=== PATIENT | male | born 1995 | race Hispanic/Latino ===

== ENCOUNTER 2018-09-15 15:07 | Inpatient (IN) | payer OTHER ==
[2018-09-15 16:20] LABS: #Eosinphils 0.1 thou/uL (0.0-0.7); #Lymphocytes 1.8 thou/uL (1.20-3.40); #Monocytes 0.7 thou/uL (0.11-0.59); #Neutrophils 10.8 thou/uL (1.40-6.50); %Basophils 0.3 % (0.0-1.0); %Eosinophils 0.7 % (0.0-10.0); %Lymphocytes 13.5 % (21.0-51.0); %Monocytes 5.4 % (0.0-10.0); %Neutrophils 80.1 % (42.0-75.0); Hemoglobin 15.1 g/dL (14.0-18.0); Mean Corpuscular HGB CONC 33.7 g/dL (32.0-36.0); Mean Corpuscular Hemoglobin 30.2 pg (27.0-31.0); Mean Corpuscular Volume 89.4 fL (78.0-98.0); Mean Platelet Volume 8.3 fL (7.4-10.4); Platelet Count 304 thou/uL (130-400); RBC Distribution Width 11.9 % (11.5-14.5); Red Blood Cell (RBC) Count 4.99 mill/uL (4.70-6.10); White Blood Cell (WBC) Count 13.5 thou/uL (4.8-10.8)
[2018-09-15 16:46] LABS: ALT (SGPT) 18 U/L (8-55); AST (SGOT) 15 U/L (5-34); Albumin 4.7 g/dL (3.5-5.0); Alkaline Phosphatase 72 U/L (40-150); Anion Gap 13 mmol/L (10-20); BUN (Urea Nitrogen) 8 mg/dL (8.9-20.6); Bilirubin, Total 0.5 mg/dL (0.2-1.2); Calc. Creatinine Clearance 0 mL/min (70-130); Calcium 10.1 mg/dL (7.8-10.44); Carbon Dioxide 26 mmol/L (22-29); Chloride 102 mmol/L (98-107); Estimated GFR-MDRD Greater than 90; Globulin 3.3 g/dL (2.4-3.5); Glucose 100 mg/dL (70-105); Potassium 4.1 mmol/L (3.5-5.1); Sodium 137 mmol/L (136-145)
[2018-09-15 19:05] LABS: Bilirubin Negative (Negative); Blood, Urine Negative (Negative); Clarity CLEAR (Clear); Glucose, Urine (Dipstick) Negative (Negative); Leukocyte Negative (Negative); Nitrite Negative (Negative); Protein, Urine (Dipstick) Negative (Neg-Trace); Specific Gravity, Urine 1.022 (1.002-1.036)
[2018-09-15] MEDS ORDERED: Ondansetron PF 4 MG/2 ML Vial IVP PRN (19:11)
[2018-09-15] MEDS ORDERED: Ondansetron ODT 4 MG TAB PO PRN (19:11)
[2018-09-15] MEDS ORDERED: Morphine 4 MG/ML VIAL SLOW IVP PRN ×2 (19:11)
[2018-09-15] MEDS ORDERED: Acetaminophen 1,000 MG in Premix Bag 1 BAG IVPB PRN (19:14)
[2018-09-15] MEDS ORDERED: Ketorolac Tromethamine 30 MG/ML VIAL IVP PRN (19:14)
[2018-09-15] MEDS ORDERED: Lactated Ringer's 1,000 ML IV SCH (19:15)
--- NOTE | 2018-09-15 19:49 | HP ---
HISTORY OF PRESENT ILLNESS: Ever Lennon junior is a 23-year-old [place] male, [employer] student from [place]. He lives in a dorm with roommates. He had acute onset of abdominal pain early this morning approximately 16 hours ago, central lower abdomen is localized to the right lower quadrant. He has suffered anorexia, increased pain with movement. He has had some nausea. He was evaluated by Dr. Carrasco, felt to have a classic example for appendicitis and history and CAT scan deferred. White count 13 and hemoglobin 15. Basic metabolic profile normal. ALLERGIES: NONE. TOBACCO: None. ALCOHOL: None. MEDICATIONS: None. PAST SURGICAL AND MEDICAL HISTORY: Noncontributory. REVIEW OF SYSTEMS: Ten-point noncontributory. PHYSICAL EXAMINATION: VITAL SIGNS: Blood pressure 120/74, heart rate 74, and respiratory rate 18. HEAD, EARS, EYES, NOSE, AND THROAT: Unremarkable. LUNGS: Clear to auscultation. CARDIAC: Regular rate and rhythm without murmur or gallop. ABDOMEN: Tenderness in right lower quadrant. No guarding or rebound. Positive Rovsing sign. EXTREMITIES: Unremarkable. NEUROLOGICAL: No deficit. No ankle edema. ASSESSMENT AND PLAN: Acute appendicitis. I do not believe he needs a CAT scan. We would recommend laparoscopic video appendectomy. Risks of infection, bleeding, and reoperation explained. He consents. It is 7:00 p.m. and there are two operating rooms ongoing and if there is a situation that we cannot get into the operating room soon, this may be have to defer till in the morning. Job ID: [id number]
[2018-09-15] MEDS ORDERED: Ketorolac Tromethamine 30 MG/ML VIAL ONE (20:54)
[2018-09-15] MEDS ORDERED: Enoxaparin Sodium 40 MG/0.4 ML SYRINGE SC SCH (21:00)
[2018-09-15] MEDS ORDERED: Piperacillin/Tazobactam 3.375 GM VIAL ONE (21:52)
[2018-09-15] MEDS ORDERED: Piperacillin/Tazobactam 3.375 GM in Sodium Chloride 0.9% 100 ML IVPB SCH (23:59)
[2018-09-16] MEDS ORDERED: Bupivacaine HCl 0.5%/Epinephrine 1:200,000/PF 30 ml Vial ONE (06:48)
[2018-09-16] MEDS ORDERED: Fentanyl 100 MCG/2 ML VIAL ONE (07:04)
[2018-09-16] MEDS ORDERED: Piperacillin/Tazobactam 3.375 GM VIAL ONE (07:31)
[2018-09-16] MEDS ORDERED: Sodium Chloride 0.9% 100 ML ONE (07:32)
[2018-09-16] MEDS ORDERED: Ibuprofen 600 MG TAB PO PRN (08:08)
[2018-09-16] MEDS ORDERED: traMADol HCl 50 MG TAB PO PRN ×2 (08:08)
[2018-09-16] MEDS ORDERED: Acetaminophen 500 MG TAB PO PRN (08:08)
--- NOTE | 2018-09-16 09:24 | OP ---
DATE OF PROCEDURE: 09/16/2018 PREOPERATIVE DIAGNOSIS: Acute appendicitis. POSTOPERATIVE DIAGNOSIS: Acute appendicitis. PROCEDURE PERFORMED: Laparoscopic video appendectomy. ANESTHESIA: General, local 0.5% Marcaine with epinephrine 30 mL. DESCRIPTION OF PROCEDURE: The patient was taken to the operating room, where under general anesthesia, abdomen was clipped of hair, prepared with ChloraPrep, and draped in routine fashion. Wade catheter was placed at the beginning the procedure and removed at the end. 0.5% Marcaine with epinephrine was infiltrated in the skin and subcutaneous tissue about all port sites, total volume used. Infraumbilical incision was made. Pneumoperitoneum to 15 mmHg was obtained with a Veress needle, replaced with a 5 port, laparoscope inserted. Right lateral subcostal incision was made and a 5 port placed. Suprapubic incision was made and a 12 port placed. Appendix was acutely inflamed without purulence. Mesoappendix was taken down with the LigaSure. The stump of the appendix divided with Endo-MEENA blue load stapler. Stapled cecal stump was hemostatic and secured. His appendix was removed and submitted to Pathology. Irrigant and pneumoperitoneum evacuated after ensuring good hemostasis. Suprapubic fascia was approximated with 0 Vicryl. All skin incisions were approximated with interrupted subdermal 4-0 Monocryl and [place] glue applied. Job ID: [id number]
[2018-09-16 09:31] VITALS: TEMP 97.4
[2018-09-16 11:30] VITALS: BP 108/56
[2018-09-16] MEDS ORDERED: Succinylcholine Chloride 20 MG/ML 10 ml SYRINGE FS ONE (14:48)
[2018-09-16] MEDS ORDERED: ePHEDrine 50 MG/ML VIAL ONE (14:48)
[2018-09-16] MEDS ORDERED: Ketorolac Tromethamine 30 MG/ML VIAL ONE (14:48)
[2018-09-16] MEDS ORDERED: Lidocaine 1% PF 5 ML VIAL ONE (14:48)
[2018-09-16] MEDS ORDERED: Glycopyrrolate 0.2 MG/ML 5 ML SYRINGE ONE (14:48)
[2018-09-16] MEDS ORDERED: Ondansetron PF 4 MG/2 ML Vial ONE (14:48)
[2018-09-16] MEDS ORDERED: Rocuronium Bromide 10 MG/ML (10ML VIAL) ONE (14:48)
[2018-09-16] MEDS ORDERED: PROPOFOL 200 MG/20 ML VIAL ONE (14:48)
== END 2018-09-16 16:33 | disposition home or self-care (01) | DRG 343 ==
LOC: ERS 15:07 → OBSVTOIN 19:15 → ERHOLD 19:15 → 3SE 09-16 04:26
PROVIDERS: ADMIT Specialist; ATTEND Specialist
PROC: 0DTJ4ZZ Resection of Appendix, Percutaneous Endoscopic Approach (ICD-10-PCS; principal; 2018-09-16)
DX: K35.80 Unspecified acute appendicitis (principal)
CPT/HCPCS: 36415; 80053; 81003; 85025; 86140; 88304; 94760; J0670; J1885; J2001; J2405; J2543; J2704; J3010; J3490; J7050